=== PATIENT | male | born 1965 | race Caucasian/White ===

== ENCOUNTER 2023-05-16 15:30 | Inpatient (IN) ==
[2023-05-16] MEDS ORDERED: ACETAMINOPHEN 500 MG TAB PO STA (16:26)
[2023-05-16] MEDS ORDERED: SODIUM CHLORIDE 0.9% 1000ML 2,000 ML IV SCH (16:30)
--- NOTE | 2023-05-16 16:35 | Emergency Department Note ---
Impression & Plan Sepsis, UTI (urinary tract infection), Tick-borne disease, Syncope ED Provider Note CHIEF COMPLAINT: Fever, body aches, fatigue HISTORY OF PRESENT ILLNESS: This 58 year old male patient presents to the emergency department via ambulance from Urgent Care after syncopal episode x2. Patient states on Sunday, he drove for 6 hours in the car. He states he was feeling fine on Sunday and in fact was cutting up a tree that fell. He spent 2 to 3 hours logging and then was having a campfire where he was drinking some bourbon in the evening. States he did not finish his bourbon because he started feeling very lousy. He was experiencing some generalized body aches, fatigue, and felt very tired. He went to bed and slept great at night. He states at that time, he developed a fever. Since then, he has had fevers every day. On Sunday, he had a Tmax of 104.5 F. He has been taking Tylenol about every 6-8 hours since then which does help with the fever. He has not been taking any o ther medication. He denies any cough, congestion, runny nose, sore throat. No chest pain or shortness of breath. No abdominal pain, nausea, vomiting, diarrhea, constipation. The patient has been eating and drinking okay. He states his urine is darker than normal. He denies any flank pain. He states he did have some similar symptoms associated with a urinary tract infection he had when he was out of town several years ago. He does have a history of syncopal episodes associated with medical care. He has had extensive work-ups with his primary care provider as well as cardiology. 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 Patient does report a history of hypertension. He is currently on 20 mg of lisinopril. He states that the dose was increased from 10 mg to 20 mg about 6 months ago. He normally runs on the higher side in the 130s to 140s over 80s. He states his blood pressure of 120s over 70s is somewhat low for him. Patient states he had a decreased appetite earlier today and has only had crackers and drink some water throughout the day. Patient denies any headaches or neck pain or stiffness. He denies any trauma or injury. Of note, the patient states about 6 weeks ago, he was cleaning his pond and had some sort of a bite on the posterior aspect of his right knee. He was seen by acute care at that time and started on a 10-day course of doxycycline. He took the full course of the antibiotic and states the infection cleared up very quickly. REVIEW OF SYSTEMS: A 10 system review of systems was performed with positives and pertinent negatives listed in the history of present illness. All other systems were reviewed and are negative. ALLERGIES: None PHYSICAL EXAM: VITALS: Vitals are noted on the nurse's note and reviewed by myself. Vital signs stable. GENERAL: This is a 58-year-old male, in no acute distress, nondiaphoretic, well- developed well-nourished. SKIN: The skin was without rashes, erythema, edema, or bruising. There is no tenting of the skin. Capillary refill less than 2 seconds. HEAD: Normocephalic atraumatic. EARS: External auditory canals clear, tympanic membranes pearly mcneill without erythema or effusion bilaterally. No hemotympanum. Negative carbajal sign EYES: Pupils equal round and reactive to light and accommodation. Conjunctivae without injection, sclerae without icterus. Extraocular movements intact. NOSE: Patent, turbinates without inflammation or discharge. No sinus tenderness. MOUTH: Mucous membranes moist. Tonsils are not enlarged. Pharynx without erythema or exudate. Uvula midline. Airway patent. Tongue does not deviate. NECK: Supple without nuchal rigidity. No lymphadenopathy. No thyromegaly. Cervical spine is nontender. No JVD. HEART: Regular rate and rhythm without murmurs gallops or rubs. LUNGS: Clear to auscultation bilaterally without wheezes, rales or rhonchi. No retractions or accessory muscle use. ABDOMEN: Positive bowel sounds x 4. Soft, nontender, without masses or org anomegaly. Cote sign negative. No guarding or rebound tenderness. No CVA tenderness bilaterally. MUSCULOSKELETAL: No muscle atrophy, erythema, or edema noted. Full range of motion without joint tenderness in all extremities. No tenderness to palpation. Normal gait. Strength 5/5 throughout. NEURO: Patient was alert and oriented to person place and time. Normal sensation to light and sharp touch. Deep tendon reflexes 2+ throughout. No focal neurological deficits. 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 The monitor showed a normal sinus rhythm at a ventricular rate of 91 bpm, per my interpretation. EMERGENCY DEPARTMENT COURSE: Seen and evaluated as above. He presents via ambulance for evaluation after 2 syncopal episodes. The patient has been experiencing fever, body aches, and fatigue for several days. Given the symptoms and examination, I did elect to perform the above work-up. IV access was obtained, labs drawn. Patient was medicated with acetaminophen and IV fluids. Chest x-ray was performed and reviewed by myself and radiologist as noted. Labs were reviewed. There is a mild leukopenia with a white blood cell count of 3.18. Thrombocytopenia with platelet count of 80,000. No anemia. INR 1.1. D- dimer elevated at 4340. Renal, hepatic function and electrolytes without significant abnormality, however total bilirubin is mildly elevated at 1.5. C- reactive protein is elevated at 15.23. Lactic acid 2.1. Procalcitonin 0.47. Lipase 19. TSH 0.587. Urinalysis concerning for a cloudy appearance, positive nitrites, 2+ ketones, trace blood, 1+ bacteria. Anaplasma and Babesia smear are negative. Monoscreen negative. Lyme disease testing is negative at this time. Respiratory bio fire testing is negative for acute abnormality. Given the positive D-dimer, I did recommend CT angiogram to further evaluate his symptoms and to rule out PE. CT imaging was negative for evidence of infection or PE. The patient was medicated with IV Rocephin while in the emergency department. He was medicated with 2 L of IV fluids for aggressive rehydration. I am concerned that the patient is presenting with early sepsis. He is not hypotensive or tachycardic, but he was febrile upon arrival. The patient is experiencing systemic symptoms. He does have an elevated lactic acid as well as high fevers. Urinalysis is concerning for urinary tract infection. I am also concerned for tickborne illness given the recent insect bite several weeks ago as well as leukopenia, thrombocytopenia, and elevated bilirubin. I do recommend inpatient care for further evaluation. The patient was agreeable. He will be evaluated by Dr. Bain, [facility] physician. Please see his dictation regarding ongoing management, care, and final disposition of this patient Differential diagnosis includes Vasovagal event, dehydration, infection, hyp oglycemia, electrolyte abnormalities, cardiac sources, intracerebral event, pulmonary embolism, tick-borne illness, seizure, toxicologic, neurologic, as well as other pathologies. I attest that I have personally reviewed the patient's current medication list. Patient was found to have normal blood pressure on screening and does not require follow-up. The chart was completed utilizing [employer] Speech voice recognition software. Grammatical errors, random word insertions, pronoun errors, and incomplete sentences are an occasional consequence of this system due to software limitations, ambient noise, and hardware issues. Any formal questions or concerns about the content, text, or information contained within the body of this dictation should be directly addressed to the provider for clarification. 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 Home Meds Home Medications Medication Instructions Recorded Confirmed celecoxib 200 mg capsule 200 mg PO QPM PRN Pain 05/16/23 05/16/23 lisinopril 20 1 tab PO DAILY 05/16/23 05/16/23 mg-hydrochlorothiazide 12.5 mg tablet lorazepam 1 mg tablet 1 mg PO DAILY PRN ANXIETY--BLOOD 05/16/23 05/16/23 DRAWS multivitamin 1 tab PO DAILY 05/16/23 05/16/23 Results & Data (ED) Vital Signs Vital Signs - 24 hr 05/16/23 15:43 05/16/23 16:24 05/16/23 16:49 Temperature 38 C H Temperature Source Oral Pulse Rate - Lying Pulse Rate - Sitting Pulse Rate - Standing Pulse Rate 85 88 91 H Pulse Rate [Right Finger] Pulse Rhythm [Right Finger] Pulse Strength [Right Finger] Respiratory Rate 22 13 Respiratory Effort / Characteristics Non-Labored Respiratory Depth Normal Blood Pressure - Lying Blood Pressure - Sitting Blood Pressure- Standing Blood Pressure 122/77 Blood Pressure [Right Arm] Blood Pressure Mean 92 Blood Pressure Mean [Right Arm] Pulse Oximetry 97 96 Oxygen Delivery Method Room Air Room Air Oxygen Flow Rate Sepsis Recent Fever Within 48 Hours Yes Sepsis New/Unexplained Change in Mental Status No Sepsis Action Taken by Nursing No Action Required 05/16/23 17:50 05/16/23 17:50 05/16/23 17:52 Temperature 37.8 C H Temperature Source Oral Pulse Rate - Lying 78 Pulse Rate - Sitting 90 Pulse Rate - Standing 86 Pulse Rate Pulse Rate [Right Finger] Pulse Rhythm [Right Finger] Pulse Strength [Right Finger] Respiratory Rate Respiratory Effort / Characteristics Respiratory Depth Blood Pressure - Lying 127/75 Blood Pressure - Sitting 123/73 Blood Pressure- Standing 121/76 Blood Pressure Blood Pressure [Right Arm] Blood Pressure Mean Blood Pressure Mean [Right Arm] Pulse Oximetry 97 Oxygen Delivery Method Room Air Oxygen Flow Rate 0 Sepsis Recent Fever Within 48 Hours Sepsis New/Unexplained Change in Mental Status Sepsis Action Taken by Nursing 05/16/23 17:53 05/16/23 19:11 Temperature 37.8 C H Temperature Source Oral Pulse Rate - Lying Pulse Rate - Sitting Pulse Rate - Standing Pulse Rate Pulse Rate [Right Finger] 77 76 Pulse Rhythm [Right Finger] Regular Pulse Strength [Right Finger] Normal Respiratory Rate 14 17 Respiratory Effort / Characteristics Non-Labored Respiratory Depth Normal Blood Pressure - Lying Blood Pressure - Sitting Blood Pressure- Standing Blood Pressure Blood Pressure [Right Arm] 121/76 116/76 Blood Pressure Mean Blood Pressure Mean [Right Arm] 91 89 Pulse Oximetry 100 96 Oxygen Delivery Method Oxygen Flow Rate Sepsis Recent Fever Within 48 Hours Sepsis New/Unexplained Change in Mental Status Sepsis Action Taken by Nursing Laboratory Data 05/16/23 15:50 05/16/23 15:50 Lab Results 05/16/23 05/16/23 05/16/23 Range/Units 15:50 15:50 15:50 WBC 3.18 L (4.8-10.8) K/ul RBC 4.98 (4.70-6.10) M/uL Hgb 15.4 (14.0-18.0) g/dl Hct 42.4 (42.0-52.0) % MCV 85.1 (80.0-100.0) fL MCH 30.9 (25.0-34.0) pg MCHC 36.3 H (32.0-36.0) g/dL RDW Std Deviation 38.7 (36.4-46.3) fL RDW Coeff of Marika 12.6 (11.5-14.5) % Plt Count 80 L (130-400) K/uL MPV 10.1 (9.4-12.4) fL Immature Gran % (Auto) 0.3 % Neut % (Auto) 81.2 % Lymph % (Auto) 9.7 % [place] % (Auto) 7.9 % Eos % (Auto) 0.0 % Baso % (Auto) 0.9 % Neut # (Auto) 2.58 (1.40-6.50) K/uL Lymph # (Auto) 0.31 L (1.2-3.4) K/uL [place] # (Auto) 0.25 (0.11-0.59) K/uL Eos # (Auto) 0.00 (0-0.50) K/uL Baso # (Auto) 0.03 (0-0.2) K/uL Immature Gran # (Auto) 0.01 (0.01-0.20) K/uL Platelet Estimate Decreased L (Normal) PT 11.7 (9.0-12.0) Seconds INR 1.1 (0.9-1.1) APTT 28.4 (21.0-31.0) Seconds PTT Ratio 1.0 D-Dimer 4340 H* (0-500) ug/L FEU Sodium (136-145) mmol/L Potassium (3.5-5.1) mmol/L Chloride (98-107) mmol/L Carbon Dioxide (21-32) mmol/L Anion Gap (3-11) BUN (6-23) mg/dl Creatinine (0.6-1.4) mg/dl Est Cr Clr Drug Dosing ml/min Est GFR ( Amer) ml/min Est GFR (Non-Af Amer) ml/min BUN/Creatinine Ratio (10-20) Glucose (70-99(Fasting)) mg/dl Lactate (0.4-2.0) mmol/L Calcium (8.6-10.3) mg/dl Magnesium (1.7-2.4) mg/dl Total Bilirubin (0.2-1.0) mg/dl AST (13-39) U/L ALT (7-52) U/L Alkaline Phosphatase (34-104) U/L Total Creatine Kinase (30-223) U/L Troponin I High Sens (0-20) pg/ml C-Reactive Protein (0-0.5) mg/dl Total Protein (6.0-8.3) gm/dl Albumin (3.4-5.0) gm/dl Globulin (2.5-4.0) gm/dl Albumin/Globulin Ratio (0.9-2) Lipase (11-82) U/L Procalcitonin 0.47 (0-0.5) ng/ml TSH (0.300-4.500) uIu/ml Urine Color Urine Appearance (Clear) Urine pH (4.5-7.5) Ur Specific [place] (1.000-1.030) Urine Protein (Negative) Urine Glucose (UA) (Negative) Urine Ketones (Negative) Urine Blood (Negative) Urine Nitrite (Negative) Urine Bilirubin (Negative) Urine Urobilinogen (Negative) Ur Leukocyte Esterase (Negative) Urine WBC (Auto) (0-5) /hpf Urine RBC (Auto) (0-4) /hpf U Hyaline Cast (Auto) (0-5) /lpf U Epithel Cells (Auto) (0-5) /lpf Urine Bacteria (Auto) (Negative) Adenovirus (PCR) (NotDetected) Anaplasma Smear See Comment Babesia Smear See Comment B. pertussis DNA (PCR) (NotDetected) B.parapertussis DNA PCR (NotDetected) Lyme Disease IgG Ab Negative (Negative) Lyme Disease IgM Ab Negative (Negative) C. pneumoniae DNA (PCR) (NotDetected) Coronavirus OC43 (PCR) (NotDetected) Coronavirus HKU1 (PCR) (NotDetected) Coronavirus 229E (PCR) (NotDetected) SARS-CoV-2 (PCR) (NotDetected) Coronavirus NL63 (PCR) (NotDetected) Monoscreen (Negative) Human Metapneumovir PCR (NotDetected) Influenza Type A (PCR) (NotDetected) Influenza Type B (PCR) (NotDetected) M. pneumoniae (PCR) (NotDetected) Parainfluenza 1 (PCR) (NotDetected) Parainfluenza 2 (PCR) (NotDetected) Parainfluenza 3 (PCR) (NotDetected) Parainfluenza 4 (PCR) (NotDetected) RSV (PCR) (NotDetected) Entero/Rhino (PCR) (NotDetected) 05/16/23 05/16/23 05/16/23 Range/Units 15:50 15:50 16:47 WBC (4.8-10.8) K/ul RBC (4.70-6.10) M/uL Hgb (14.0-18.0) g/dl Hct (42.0-52.0) % MCV (80.0-100.0) fL MCH (25.0-34.0) pg MCHC (32.0-36.0) g/dL RDW Std Deviation (36.4-46.3) fL RDW Coeff of Marika (11.5-14.5) % Plt Count (130-400) K/uL MPV (9.4-12.4) fL Immature Gran % (Auto) % Neut % (Auto) % Lymph % (Auto) % [place] % (Auto) % Eos % (Auto) % Baso % (Auto) % Neut # (Auto) (1.40-6.50) K/uL Lymph # (Auto) (1.2-3.4) K/uL [place] # (Auto) (0.11-0.59) K/uL Eos # (Auto) (0-0.50) K/uL Baso # (Auto) (0-0.2) K/uL Immature Gran # (Auto) (0.01-0.20) K/uL Platelet Estimate (Normal) PT (9.0-12.0) Seconds INR (0.9-1.1) APTT (21.0-31.0) Seconds PTT Ratio D-Dimer (0-500) ug/L FEU Sodium 131 L (136-145) mmol/L Potassium 3.6 (3.5-5.1) mmol/L Chloride 97 L (98-107) mmol/L Carbon Dioxide 23 (21-32) mmol/L Anion Gap 11 (3-11) BUN 17 (6-23) mg/dl Creatinine 1.09 (0.6-1.4) mg/dl Est Cr Clr Drug Dosing 91.3 ml/min Est GFR ( Amer) 86.9 ml/min Est GFR (Non-Af Amer) 74.9 ml/min BUN/Creatinine Ratio 15.6 (10-20) Glucose 166 H (70-99(Fasting)) mg/dl Lactate (0.4-2.0) mmol/L Calcium 9.0 (8.6-10.3) mg/dl Magnesium 1.7 (1.7-2.4) mg/dl Total Bilirubin 1.5 H (0.2-1.0) mg/dl AST 36 (13-39) U/L ALT 35 (7-52) U/L Alkaline Phosphatase 58 (34-104) U/L Total Creatine Kinase 69 (30-223) U/L Troponin I High Sens 7.1 (0-20) pg/ml C-Reactive Protein 15.23 H (0-0.5) mg/dl Total Protein 6.9 (6.0-8.3) gm/dl Albumin 4.0 (3.4-5.0) gm/dl Globulin 2.9 (2.5-4.0) gm/dl Albumin/Globulin Ratio 1.4 (0.9-2) Lipase 19 (11-82) U/L Procalcitonin (0-0.5) ng/ml TSH 0.587 (0.300-4.500) uIu/ml Urine Color Dark Yellow Urine Appearance Cloudy A (Clear) Urine pH 6.5 (4.5-7.5) Ur Specific [place] 1.023 (1.000-1.030) Urine Protein 2+ H (Negative) Urine Glucose (UA) Negative (Negative) Urine Ketones 2+ H (Negative) Urine Blood Trace H (Negative) Urine Nitrite Positive A (Negative) Urine Bilirubin Negative (Negative) Urine Urobilinogen Negative (Negative) Ur Leukocyte Esterase Trace H (Negative) Urine WBC (Auto) 1-5 (0-5) /hpf Urine RBC (Auto) 5-10 H (0-4) /hpf U Hyaline Cast (Auto) 1-5 (0-5) /lpf U Epithel Cells (Auto) 10-20 H (0-5) /lpf Urine Bacteria (Auto) 1+ H (Negative) Adenovirus (PCR) (NotDetected) Anaplasma Smear Babesia Smear B. pertussis DNA (PCR) (NotDetected) B.parapertussis DNA PCR (NotDetected) Lyme Disease IgG Ab (Negative) Lyme Disease IgM Ab (Negative) C. pneumoniae DNA (PCR) (NotDetected) Coronavirus OC43 (PCR) (NotDetected) Coronavirus HKU1 (PCR) (NotDetected) Coronavirus 229E (PCR) (NotDetected) SARS-CoV-2 (PCR) (NotDetected) Coronavirus NL63 (PCR) (NotDetected) Monoscreen (Negative) Human Metapneumovir PCR (NotDetected) Influenza Type A (PCR) (NotDetected) Influenza Type B (PCR) (NotDetected) M. pneumoniae (PCR) (NotDetected) Parainfluenza 1 (PCR) (NotDetected) Parainfluenza 2 (PCR) (NotDetected) Parainfluenza 3 (PCR) (NotDetected) Parainfluenza 4 (PCR) (NotDetected) RSV (PCR) (NotDetected) Entero/Rhino (PCR) (NotDetected) 05/16/23 05/16/23 05/16/23 Range/Units 17:10 17:10 18:07 WBC (4.8-10.8) K/ul RBC (4.70-6.10) M/uL Hgb (14.0-18.0) g/dl Hct (42.0-52.0) % MCV (80.0-100.0) fL MCH (25.0-34.0) pg MCHC (32.0-36.0) g/dL RDW Std Deviation (36.4-46.3) fL RDW Coeff of Marika (11.5-14.5) % Plt Count (130-400) K/uL MPV (9.4-12.4) fL Immature Gran % (Auto) % Neut % (Auto) % Lymph % (Auto) % [place] % (Auto) % Eos % (Auto) % Baso % (Auto) % Neut # (Auto) (1.40-6.50) K/uL Lymph # (Auto) (1.2-3.4) K/uL [place] # (Auto) (0.11-0.59) K/uL Eos # (Auto) (0-0.50) K/uL Baso # (Auto) (0-0.2) K/uL Immature Gran # (Auto) (0.01-0.20) K/uL Platelet Estimate (Normal) PT (9.0-12.0) Seconds INR (0.9-1.1) APTT (21.0-31.0) Seconds PTT Ratio D-Dimer (0-500) ug/L FEU Sodium (136-145) mmol/L Potassium (3.5-5.1) mmol/L Chloride (98-107) mmol/L Carbon Dioxide (21-32) mmol/L Anion Gap (3-11) BUN (6-23) mg/dl Creatinine (0.6-1.4) mg/dl Est Cr Clr Drug Dosing ml/min Est GFR ( Amer) ml/min Est GFR (Non-Af Amer) ml/min BUN/Creatinine Ratio (10-20) Glucose (70-99(Fasting)) mg/dl Lactate 2.1 H* (0.4-2.0) mmol/L Calcium (8.6-10.3) mg/dl Magnesium (1.7-2.4) mg/dl Total Bilirubin (0.2-1.0) mg/dl AST (13-39) U/L ALT (7-52) U/L Alkaline Phosphatase (34-104) U/L Total Creatine Kinase (30-223) U/L Troponin I High Sens (0-20) pg/ml C-Reactive Protein (0-0.5) mg/dl Total Protein (6.0-8.3) gm/dl Albumin (3.4-5.0) gm/dl Globulin (2.5-4.0) gm/dl Albumin/Globulin Ratio (0.9-2) Lipase (11-82) U/L Procalcitonin (0-0.5) ng/ml TSH (0.300-4.500) uIu/ml Urine Color Urine Appearance (Clear) Urine pH (4.5-7.5) Ur Specific [place] (1.000-1.030) Urine Protein (Negative) Urine Glucose (UA) (Negative) Urine Ketones (Negative) Urine Blood (Negative) Urine Nitrite (Negative) Urine Bilirubin (Negative) Urine Urobilinogen (Negative) Ur Leukocyte Esterase (Negative) Urine WBC (Auto) (0-5) /hpf Urine RBC (Auto) (0-4) /hpf U Hyaline Cast (Auto) (0-5) /lpf U Epithel Cells (Auto) (0-5) /lpf Urine Bacteria (Auto) (Negative) Adenovirus (PCR) Not Detected (NotDetected) Anaplasma Smear Babesia Smear B. pertussis DNA (PCR) Not Detected (NotDetected) B.parapertussis DNA PCR Not Detected (NotDetected) Lyme Disease IgG Ab (Negative) Lyme Disease IgM Ab (Negative) C. pneumoniae DNA (PCR) Not Detected (NotDetected) Coronavirus OC43 (PCR) Not Detected (NotDetected) Coronavirus HKU1 (PCR) Not Detected (NotDetected) Coronavirus 229E (PCR) Not Detected (NotDetected) SARS-CoV-2 (PCR) Not Detected (NotDetected) Coronavirus NL63 (PCR) Not Detected (NotDetected) Monoscreen Negative (Negative) Human Metapneumovir PCR Not Detected (NotDetected) Influenza Type A (PCR) Not Detected (NotDetected) Influenza Type B (PCR) Not Detected (NotDetected) M. pneumoniae (PCR) Not Detected (NotDetected) Parainfluenza 1 (PCR) Not Detected (NotDetected) Parainfluenza 2 (PCR) Not Detected (NotDetected) Parainfluenza 3 (PCR) Not Detected (NotDetected) Parainfluenza 4 (PCR) Not Detected (NotDetected) RSV (PCR) Not Detected (NotDetected) Entero/Rhino (PCR) Not Detected (NotDetected) 05/16/23 Range/Units 19:25 WBC (4.8-10.8) K/ul RBC (4.70-6.10) M/uL Hgb (14.0-18.0) g/dl Hct (42.0-52.0) % MCV (80.0-100.0) fL MCH (25.0-34.0) pg MCHC (32.0-36.0) g/dL RDW Std Deviation (36.4-46.3) fL RDW Coeff of Marika (11.5-14.5) % Plt Count (130-400) K/uL MPV (9.4-12.4) fL Immature Gran % (Auto) % Neut % (Auto) % Lymph % (Auto) % [place] % (Auto) % Eos % (Auto) % Baso % (Auto) % Neut # (Auto) (1.40-6.50) K/uL Lymph # (Auto) (1.2-3.4) K/uL [place] # (Auto) (0.11-0.59) K/uL Eos # (Auto) (0-0.50) K/uL Baso # (Auto) (0-0.2) K/uL Immature Gran # (Auto) (0.01-0.20) K/uL Platelet Estimate (Normal) PT (9.0-12.0) Seconds INR (0.9-1.1) APTT (21.0-31.0) Seconds PTT Ratio D-Dimer (0-500) ug/L FEU Sodium (136-145) mmol/L Potassium (3.5-5.1) mmol/L Chloride (98-107) mmol/L Carbon Dioxide (21-32) mmol/L Anion Gap (3-11) BUN (6-23) mg/dl Creatinine (0.6-1.4) mg/dl Est Cr Clr Drug Dosing ml/min Est GFR ( Amer) ml/min Est GFR (Non-Af Amer) ml/min BUN/Creatinine Ratio (10-20) Glucose (70-99(Fasting)) mg/dl Lactate 1.3 (0.4-2.0) mmol/L Calcium (8.6-10.3) mg/dl Magnesium (1.7-2.4) mg/dl Total Bilirubin (0.2-1.0) mg/dl AST (13-39) U/L ALT (7-52) U/L Alkaline Phosphatase (34-104) U/L Total Creatine Kinase (30-223) U/L Troponin I High Sens (0-20) pg/ml C-Reactive Protein (0-0.5) mg/dl Total Protein (6.0-8.3) gm/dl Albumin (3.4-5.0) gm/dl Globulin (2.5-4.0) gm/dl Albumin/Globulin Ratio (0.9-2) Lipase (11-82) U/L Procalcitonin (0-0.5) ng/ml TSH (0.300-4.500) uIu/ml Urine Color Urine Appearance (Clear) Urine pH (4.5-7.5) Ur Specific [place] (1.000-1.030) Urine Protein (Negative) Urine Glucose (UA) (Negative) Urine Ketones (Negative) Urine Blood (Negative) Urine Nitrite (Negative) Urine Bilirubin (Negative) Urine Urobilinogen (Negative) Ur Leukocyte Esterase (Negative) Urine WBC (Auto) (0-5) /hpf Urine RBC (Auto) (0-4) /hpf U Hyaline Cast (Auto) (0-5) /lpf U Epithel Cells (Auto) (0-5) /lpf Urine Bacteria (Auto) (Negative) Adenovirus (PCR) (NotDetected) Anaplasma Smear Babesia Smear B. pertussis DNA (PCR) (NotDetected) B.parapertussis DNA PCR (NotDetected) Lyme Disease IgG Ab (Negative) Lyme Disease IgM Ab (Negative) C. pneumoniae DNA (PCR) (NotDetected) Coronavirus OC43 (PCR) (NotDetected) Coronavirus HKU1 (PCR) (NotDetected) Coronavirus 229E (PCR) (NotDetected) SARS-CoV-2 (PCR) (NotDetected) Coronavirus NL63 (PCR) (NotDetected) Monoscreen (Negative) Human Metapneumovir PCR (NotDetected) Influenza Type A (PCR) (NotDetected) Influenza Type B (PCR) (NotDetected) M. pneumoniae (PCR) (NotDetected) Parainfluenza 1 (PCR) (NotDetected) Parainfluenza 2 (PCR) (NotDetected) Parainfluenza 3 (PCR) (NotDetected) Parainfluenza 4 (PCR) (NotDetected) RSV (PCR) (NotDetected) Entero/Rhino (PCR) (NotDetected) Administered Medications Sodium Chloride (Nss 1000ml) 1,000 mls @ 125 mls/hr IV .Q8H MONSE Stop: 06/15/23 21:57 Last Admin: 05/16/23 22:20 Dose: 125 mls/hr Documented By: SAVANNAH Doxycycline Hyclate 100 mg/ (Dextrose) 110 mls @ 50 mls/hr IV Q12H MONSE Stop: 05/30/23 21:59 Last Admin: 05/16/23 22:20 Dose: 50 mls/hr Documented By: SAVANNAH Discontinued Medications Acetaminophen (Acetaminophen 500 Mg Tab) 1,000 mg PO NOW STA Stop: 05/16/23 16:27 Last Admin: 05/16/23 16:43 Dose: 1,000 mg Documented By: BAR Sodium Chloride (Nss 1000ml) 2,000 mls @ 999 mls/hr IV .Q2H1M MONSE Stop: 05/16/23 18:30 Last Infusion: 05/16/23 18:54 Dose: 0 mls/hr Documented By: Admin: 05/16/23 16:47 Dose: 999 mls/hr Documented By: BAR Ceftriaxone Sodium (Rocephin) 2,000 mg in 70 mls @ 140 mls/hr IV NOW STA Stop: 05/16/23 18:20 Last Infusion: 05/16/23 18:31 Dose: 0 mls/hr Documented By: Admin: 05/16/23 17:56 Dose: 140 mls/hr Documented By: BAR Ioversol (Ioversol 350 Mg 125ml Prefilled Syringe) 117 ml IV ONCE ONE Stop: 05/16/23 18:23 Last Admin: 05/16/23 18:22 Dose: 117 ml Documented By: PATRICIA Imaging Data Radiologist's Impression: Chest X-Ray 05/16/23 16:26 XR chest 1V portable HISTORY: 58 years-old Male syncope COMPARISON: None TECHNIQUE: AP view of the chest FINDINGS: Cardiomediastinal and hilar silhouettes are within normal limits. No pneumothorax, pleural effusion, airspace consolidation or pulmonary edema. Bones appear grossly intact. Spondylotic spurring of the spine. IMPRESSION: No acute process. ACT 112: Negative or not required by law. The above report was generated using voice recognition software. It may contain grammatical, syntax or spelling errors. Electronically signed by: Burke Colon M.D. 05/16/2023 4:35 PM Chest CTA 05/16/23 18:06 CT ANGIOGRAPHY OF THE CHEST, PULMONARY EMBOLUS PROTOCOL CLINICAL HISTORY: Fever, syncope, positive Dimer COMPARISON STUDY: Chest radiograph performed earlier today. TECHNIQUE: Following IV administration of 117 mL of Optiray, helical axial images of the chest were obtained utilizing the pulmonary embolus protocol. Maximal intensity projections and sagittal and coronal reformats were viewed on an independent 3D workstation. IV contrast was administered without complication. Automated exposure control was utilized for the study. A dose lowering technique was utilized adhering to the principles of ALARA. CT DOSE: 941.69 mGy.cm FINDINGS: No pulmonary emboli are identified. There is no thoracic aortic dissection. Size of the heart is normal. There is no pericardial effusion. No consolidation is identified to suggest pneumonia. A few small calcified granulomas within the lungs are present. Central airways are patent. No acute fractures are identified within visualized portions of the bony thorax. There is mild splenomegaly, partially imaged on this exam. IMPRESSION: 1. No pulmonary emboli identified. 2. No consolidation to suggest pneumonia. 3. Mild splenomegaly. ACT 112: Negative or not required by law. Electronically signed by: Bashir Golden M.D. 05/16/2023 6:32 PM Discharge Plan Visit Data Chief Complaint: Syncope Stated Complaint: SYNCOPE ED Provider: Lamonte Jensen ED Midlevel Provider: Jocelyn Blanc Discharge Problem: Sepsis, UTI (urinary tract infection), Tick-borne disease, Syncope Patient Disposition: Admitted As Inpatient Discharge Instructions Interventions: ED Discharge Assessment Last Done: 05/16/23 21:32
--- NOTE | 2023-05-16 16:37 | XRay Report ---
XR chest 1V portable HISTORY: 58 years-old Male syncope COMPARISON: None TECHNIQUE: AP view of the chest FINDINGS: Cardiomediastinal and hilar silhouettes are within normal limits. No pneumothorax, pleural effusion, airspace consolidation or pulmonary edema. Bones appear grossly intact. Spondylotic spurring of the s pine. IMPRESSION: No acute process. ACT 112: Negative or not required by law. The above report was generated using voice recognition software. It may contain grammatical, syntax o r spelling errors. Electronically signed by: Burke Colon M.D. 05/16/2023 4:35 PM
[2023-05-16 17:16] LABS: Appearance Urine Cloudy (Clear); Bilirubin Urine Negative (Negative); Blood Urine Trace (Negative); Color Urine Dark Yellow; Glucose Urine UA Negative (Negative); Ketones Urine 2+ (Negative); Leukocyte Esterase Urine Trace (Negative); Nitrite Urine Positive (Negative); Protein Urine 2+ (Negative); Specific Gravity Urine 1.023 (1.000-1.030); Urobilinogen Urine Negative (Negative); pH Urine 6.5 (4.5-7.5)
[2023-05-16 17:22] LABS: Albumin Globulin Ratio 1.4 (0.9-2); BUN Creatinine Ratio 15.6 (10-20); Bilirubin,Total 1.5 mg/dl (0.2-1.0); C Reactive Protein 15.23 mg/dl (0-0.5); Creatinine Clr Calc Pharmacy 91.3 ml/min; Est GFR (African American) 86.9 ml/min; Est GFR (Non-African American) 74.9 ml/min; Globulin 2.9 gm/dl (2.5-4.0); Magnesium 1.7 mg/dl (1.7-2.4); Potassium 3.6 mmol/L (3.5-5.1); Total Protein 6.9 gm/dl (6.0-8.3)
[2023-05-16 17:27] LABS: Troponin I High Sensitivity 7.1 pg/ml (0-20)
[2023-05-16 17:28] LABS: Hematocrit (blood only) 42.4 % (42.0-52.0); Hemoglobin 15.4 g/dl (14.0-18.0); Mean Corpuscular Hemoglobin 30.9 pg (25.0-34.0); Mean Corpuscular Hgb Conc 36.3 g/dL (32.0-36.0); Mean Corpuscular Volume 85.1 fL (80.0-100.0); Mean Platelet Volume 10.1 fL (9.4-12.4); Platelet Count 80 K/uL (130-400); RDW Coefficient of Variation 12.6 % (11.5-14.5); RDW Standard Deviation 38.7 fL (36.4-46.3); Red Blood Count 4.98 M/uL (4.70-6.10); White Blood Count 3.18 K/ul (4.8-10.8)
[2023-05-16 17:30] LABS: Basophils # (auto) 0.03 K/uL (0-0.2); Basophils % (auto) 0.9 %; Immature Granulocytes # (auto) 0.01 K/uL (0.01-0.20); Immature Granulocytes % (auto) 0.3 %; Lymphocytes # (auto) 0.31 K/uL (1.2-3.4); Lymphocytes % (auto) 9.7 %; Monocytes # (auto) 0.25 K/uL (0.11-0.59); Monocytes % (auto) 7.9 %; Neutrophils # (auto) 2.58 K/uL (1.40-6.50); Neutrophils % (auto) 81.2 %; Platelet Estimate Decreased (Normal)
[2023-05-16 17:40] LABS: Procalcitonin 0.47 ng/ml (0-0.5)
[2023-05-16 17:46] LABS: Lyme Ab IgG w/WB Rflx Negative (Negative); Lyme Ab IgM w/WB Rflx Negative (Negative)
[2023-05-16] MEDS ORDERED: cefTRIAXone SODIUM 2,000 MG/70 ML BAG IV STA (17:51)
[2023-05-16 17:57] LABS: Bacteria Urine Automated 1+ (Negative)
[2023-05-16 18:03] LABS: INR 1.1 (0.9-1.1); Partial Thromboplastin Time 28.4 Seconds (21.0-31.0); Prothrombin Time 11.7 Seconds (9.0-12.0)
[2023-05-16 18:06] LABS: D Dimer 4340 ug/L FEU (0-500)
[2023-05-16] MEDS ORDERED: IOVERSOL 350 MG 125mL Prefilled Syringe IV ONE (18:22)
--- NOTE | 2023-05-16 18:35 | CT Scan Report ---
CT ANGIOGRAPHY OF THE CHEST, PULMONARY EMBOLUS PROTOCOL CLINICAL HISTORY: Fever, syncope, positive Dimer COMPARISON STUDY: Chest radiograph performed earlier today. TECHNIQUE: Following IV administration of 117 mL of Optiray, helical axial images of the chest were o btained utilizing the pulmonary embolus protocol. Maximal intensity projections and sagittal and cor onal reformats were viewed on an independent 3D workstation. IV contrast was administered without co mplication. Automated exposure control was utilized for the study. A dose lowering technique was ut ilized adhering to the principles of ALARA. CT DOSE: 941.69 mGy.cm FINDINGS: No pulmonary emboli are identified. There is no thoracic aortic dissection. Size of the he art is normal. There is no pericardial effusion. No consolidation is identified to suggest pneumonia. A few small calcified granulomas within the lungs are present. Central airways are patent. No acute fractures are identified within visualized portions of the bony thorax. There is mild splenomegaly, p artially imaged on this exam. IMPRESSION: 1. No pulmonary emboli identified. 2. No consolidation to suggest pneumonia. 3. Mild splenomegaly. ACT 112: Negative or not required by law. Electronically signed by: Bashir Golden M.D. 05/16/2023 6:32 PM
[2023-05-16 18:40] LABS: Adenovirus PCR Not Detected (NotDetected); Bordetella parapertussis PCR Not Detected (NotDetected); Bordetella pertussis PCR Not Detected (NotDetected); Chlamydia pneumoniae PCR Not Detected (NotDetected); Coronavirus 229E PCR Not Detected (NotDetected); Coronavirus CoV-2 (COVID19)PCR Not Detected (NotDetected); Coronavirus HKU1 PCR Not Detected (NotDetected); Coronavirus NL63 PCR Not Detected (NotDetected); Coronavirus OC43PCR Not Detected (NotDetected); Human Metapneumovirus PCR Not Detected (NotDetected); Influenza A PCR Not Detected (NotDetected); Influenza B PCR Not Detected (NotDetected); Mycoplasma pneumoniae PCR Not Detected (NotDetected); Parainfluenza Virus 1 PCR Not Detected (NotDetected); Parainfluenza Virus 2 PCR Not Detected (NotDetected); Parainfluenza Virus 3 PCR Not Detected (NotDetected); Parainfluenza Virus 4 PCR Not Detected (NotDetected); Respiratory Syncytial VirusPCR Not Detected (NotDetected); Rhinovirus/Enterovirus PCR Not Detected (NotDetected)
[2023-05-16] MEDS ORDERED: NITROGLYCERIN SL 0.4 MG/TAB TAB SL PRN (21:58)
[2023-05-16] MEDS ORDERED: ACETAMINOPHEN 325 MG TAB PO PRN (21:58)
[2023-05-16] MEDS ORDERED: LORazepam 1 MG TAB PO PRN (21:58)
[2023-05-16] MEDS: DOXYCYCLINE HYCLATE 100 MG in DEXTROSE 5% 100 ML IV SCH (22:20)
[2023-05-16] MEDS: SODIUM CHLORIDE 0.9% 1000ML 1,000 ML IV SCH (22:20)
--- NOTE | 2023-05-16 22:36 | History & Physical Report ---
Date of Service May 16, 2023 Assessment & Plan (1) Sepsis: Plan: 58-year-old male with history of hypertension and history of syncopal episodes presents with high fevers and syncopal episodes and found to have sepsis most likely secondary to UTI and tickborne illness. Sepsis High fever, leukopenia elevated lactic acid 2.1 on presentation Urinalysis positive Patient lives in [facility] and recently had a tick bite 3 weeks ago though he thinks it was only less than 2 hours on his body when he took it off. Currently hemodynamically stable We will continue the Rocephin and doxycycline and IV fluids We will monitor the hemodynamics We will follow the cultures Syncope He passed a couple of times in the urgent care and was told just to go to hospital Patient says he has history of syncopes in the past several times since his 20s mostly associated with any medical condition Will monitor on telemetry floor Orthostatics Follow serial cardiac enzymes and echo Consult cardiology in a.m. UTI Antibiotics as able Possible tickborne illness Patient is [facility] area and had tick bite 3 weeks ago Possible anaplasmosis as patient has leukopenia and thrombocytopenia and elevated total bilirubin We will follow the tickborne illness studies Currently on Rocephin and Doxy We will monitor the response Hyponatremia Sodium of 131 Getting fluids We will follow labs in a.m. Elevated D-dimer CTA chest no PE Most likely from sepsis Hypertension On lisinopril hydrochlorothiazide at home We will hold home blood pressure meds for now and monitor DVT prophylaxis SCDs as patient has thrombocytopenia Disposition telemetry floor Full code (2) Syncope: (3) UTI (urinary tract infection): (4) Tick-borne disease: History of Present Illness Chief Complaint: Fevers and syncopal episode Primary Care Provider: Joseph Mckeon 58-year-old male with past medical history significant for hypertension history of syncopal episodes in the past presents with high fevers and syncopal episode in the urgent care. Patient [place] [address] Last Sunday he got some logs later in the night he felt weak started developing fevers. The fevers did not subside and Sunday they were 104 degrees. He took some Tylenol. As they are not getting better and feeling weak and poor appetite he went to urgent care today. In the urgent care he was told that he has to go to ER and that he has A-fib when he suddenly had somewhat panic attack because he does not like hospitals and he passed out for less than a minute as per the patient. With EMS came he passed out 1 more time as per patient. He says he drank a lot of water in anticipation of urine test before going to the urgent care. And says he micturated once while he passed out. Patient states syncopal episodes is not new to him. He is having them since his 20s. And all of them happened when he is in the medical situation. He does not like needles and hospitals. He stated he had a work-up with Holter sleep study with the cardiology in the past. He thinks he he has vasovagal syncope. 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 Patient states when he is not raining he is mostly in the [place]. When he is in the singh he wears clothes treated with permethrin. But 3 weeks ago he saw a tick on the right side of his trunk and took it out and he thinks its not more than couple of hours there. 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 He was treated with doxycycline for 10 days and that cleared infection very fast. In the ER after fluids and antibiotics if a lot better. During the syncopal episode he sweat a lot and was feeling dizzy. Even in the ER while his blood work was done he felt panicky attack and sweat a lot. He says he walked to this CAT scan and he did not feel dizziness. Currently denies any headache or neck pain or chest pain or abdominal pain or back pain. He had back pain earlier but that resolved with the Tylenol. Denies any cough. No earache or runny nose or sore throat. Appetite is down. Today had 1 episode of diarrhea. Normal bladder movements. Urine looked dark. Past medical history as mentioned above Past surgical history none as per patient Family history both mother and dad has diabetes, mother had diabetic retinopathy, maternal grandfather had cancer. Social history never smoked Alcohol occasional. Allergies Allergy/AdvReac Type Severity Reaction Status Date / Time MOSQUITO BITES Allergy Intermediate EXTREME Uncoded 05/16/23 18:46 SWELLING AT SITES, ENDED WITH CELLULITIS. Home Medications Medication Instructions Recorded Confirmed Type celecoxib 200 mg capsule 200 mg PO QPM PRN Pain 05/16/23 05/16/23 History lisinopril 20 mg tablet 20 mg PO DAILY 05/16/23 05/16/23 History lorazepam 1 mg tablet 1 mg PO DAILY PRN ANXIETY--BLOOD 05/16/23 05/16/23 History DRAWS multivitamin 1 tab PO DAILY 05/16/23 05/16/23 History Past Med/Surg History Medical History No pertinent past medical history Social History Smoking Status: Never smoker Hx Alcohol Use: Yes Hx Substance Use: No Preferred Language: Romanian Communication Ability: Effective Bath Solution Maker Required: No Beliefs That Will Affect Care: None Current Living Situation: Spouse Other Information That Helps Us Care for You: No Feels Safe at Home: Yes Safety Concerns: Feels Safe At This Time Assistive Devices: None Review of Systems Review of Systems: All systems reviewed & are unremarkable except as noted in Subjective Physical Exam Physical Exam: General- Not in distress Head- atraumatic Eyes- PERRL ENT- oropharynx clear Neck- supple, no JVD, Lungs- clear to auscultation and percussion Heart- regular rate and rhythm; no murmur, no gallop, Abdomen- normal bowel sounds, soft, nontender, nodistension Extremities- no pretibial edema, no erythema seen Neuro- alert, oriented x 3; PERRL, EOMI; no facial palsy; no dysarthria; non foacl. Skin- warm & dry Results & Data Results & Data Vital Signs (Past 12 Hours) Vital Signs Temp Pulse Pulse Resp BP BP Pulse Ox 05/16/23 19:11 76 17 116/76 96 05/16/23 17:53 37.8 C H 77 14 121/76 100 05/16/23 17:52 37.8 C H 05/16/23 17:50 97 05/16/23 16:49 91 H 13 96 05/16/23 16:24 88 05/16/23 15:43 38 C H 85 22 122/77 97 O2 Del Method O2 Flow Rate 05/16/23 19:11 05/16/23 17:53 05/16/23 17:52 05/16/23 17:50 Room Air 0 05/16/23 16:49 Room Air 05/16/23 16:24 05/16/23 15:43 Room Air Diagnostic Findings Laboratory Results WBC 3.18 K/ul (4.8-10.8) L 05/16/23 15:50 RBC 4.98 M/uL (4.70-6.10) 05/16/23 15:50 Hgb 15.4 g/dl (14.0-18.0) 05/16/23 15:50 Hct 42.4 % (42.0-52.0) 05/16/23 15:50 MCV 85.1 fL (80.0-100.0) 05/16/23 15:50 MCH 30.9 pg (25.0-34.0) 05/16/23 15:50 MCHC 36.3 g/dL (32.0-36.0) H 05/16/23 15:50 RDW Std Deviation 38.7 fL (36.4-46.3) 05/16/23 15:50 RDW Coeff of Marika 12.6 % (11.5-14.5) 05/16/23 15:50 Plt Count 80 K/uL (130-400) L 05/16/23 15:50 MPV 10.1 fL (9.4-12.4) 05/16/23 15:50 Immature Gran % (Auto) 0.3 % 05/16/23 15:50 Neut % (Auto) 81.2 % 05/16/23 15:50 Lymph % (Auto) 9.7 % 05/16/23 15:50 [place] % (Auto) 7.9 % 05/16/23 15:50 Eos % (Auto) 0.0 % 05/16/23 15:50 Baso % (Auto) 0.9 % 05/16/23 15:50 Neut # (Auto) 2.58 K/uL (1.40-6.50) 05/16/23 15:50 Lymph # (Auto) 0.31 K/uL (1.2-3.4) L 05/16/23 15:50 [place] # (Auto) 0.25 K/uL (0.11-0.59) 05/16/23 15:50 Eos # (Auto) 0.00 K/uL (0-0.50) 05/16/23 15:50 Baso # (Auto) 0.03 K/uL (0-0.2) 05/16/23 15:50 Immature Gran # (Auto) 0.01 K/uL (0.01-0.20) 05/16/23 15:50 Platelet Estimate Decreased (Normal) L 05/16/23 15:50 PT 11.7 Seconds (9.0-12.0) 05/16/23 15:50 INR 1.1 (0.9-1.1) 05/16/23 15:50 APTT 28.4 Seconds (21.0-31.0) 05/16/23 15:50 PTT Ratio 1.0 05/16/23 15:50 D-Dimer 4340 ug/L FEU (0-500) H* 05/16/23 15:50 Sodium 131 mmol/L (136-145) L 05/16/23 15:50 Potassium 3.6 mmol/L (3.5-5.1) 05/16/23 15:50 Chloride 97 mmol/L (98-107) L 05/16/23 15:50 Carbon Dioxide 23 mmol/L (21-32) 05/16/23 15:50 Anion Gap 11 (3-11) 05/16/23 15:50 BUN 17 mg/dl (6-23) 05/16/23 15:50 Creatinine 1.09 mg/dl (0.6-1.4) 05/16/23 15:50 Est Cr Clr Drug Dosing 91.3 ml/min 05/16/23 15:50 Est GFR ( Amer) 86.9 ml/min 05/16/23 15:50 Est GFR (Non-Af Amer) 74.9 ml/min 05/16/23 15:50 BUN/Creatinine Ratio 15.6 (10-20) 05/16/23 15:50 Glucose 166 mg/dl (70-99(Fasting)) H 05/16/23 15:50 Lactate 1.3 mmol/L (0.4-2.0) 05/16/23 19:25 Calcium 9.0 mg/dl (8.6-10.3) 05/16/23 15:50 Magnesium 1.7 mg/dl (1.7-2.4) 05/16/23 15:50 Total Bilirubin 1.5 mg/dl (0.2-1.0) H 05/16/23 15:50 AST 36 U/L (13-39) 05/16/23 15:50 ALT 35 U/L (7-52) 05/16/23 15:50 Alkaline Phosphatase 58 U/L (34-104) 05/16/23 15:50 Total Creatine Kinase 69 U/L (30-223) 05/16/23 15:50 Troponin I High Sens 7.1 pg/ml (0-20) 05/16/23 15:50 C-Reactive Protein 15.23 mg/dl (0-0.5) H 05/16/23 15:50 Total Protein 6.9 gm/dl (6.0-8.3) 05/16/23 15:50 Albumin 4.0 gm/dl (3.4-5.0) 05/16/23 15:50 Globulin 2.9 gm/dl (2.5-4.0) 05/16/23 15:50 Albumin/Globulin Ratio 1.4 (0.9-2) 05/16/23 15:50 Lipase 19 U/L (11-82) 05/16/23 15:50 Procalcitonin 0.47 ng/ml (0-0.5) 05/16/23 15:50 TSH 0.587 uIu/ml (0.300-4.500) 05/16/23 15:50 Urine Color Dark Yellow 05/16/23 16:47 Urine Appearance Cloudy (Clear) A 05/16/23 16:47 Urine pH 6.5 (4.5-7.5) 05/16/23 16:47 Ur Specific Marble 1.023 (1.000-1.030) 05/16/23 16:47 Urine Protein 2+ (Negative) H 05/16/23 16:47 Urine Glucose (UA) Negative (Negative) 05/16/23 16:47 Urine Ketones 2+ (Negative) H 05/16/23 16:47 Urine Blood Trace (Negative) H 05/16/23 16:47 Urine Nitrite Positive (Negative) A 05/16/23 16:47 Urine Bilirubin Negative (Negative) 05/16/23 16:47 Urine Urobilinogen Negative (Negative) 05/16/23 16:47 Ur Leukocyte Esterase Trace (Negative) H 05/16/23 16:47 Urine WBC (Auto) 1-5 /hpf (0-5) 05/16/23 16:47 Urine RBC (Auto) 5-10 /hpf (0-4) H 05/16/23 16:47 U Hyaline Cast (Auto) 1-5 /lpf (0-5) 05/16/23 16:47 U Epithel Cells (Auto) 10-20 /lpf (0-5) H 05/16/23 16:47 Urine Bacteria (Auto) 1+ (Negative) H 05/16/23 16:47 Adenovirus (PCR) Not Detected (NotDetected) 05/16/23 17:10 Anaplasma Smear See Comment 05/16/23 15:50 Babesia Smear See Comment 05/16/23 15:50 B. pertussis DNA (PCR) Not Detected (NotDetected) 05/16/23 17:10 B.parapertussis DNA PCR Not Detected (NotDetected) 05/16/23 17:10 Lyme Disease IgG Ab Negative (Negative) 05/16/23 15:50 Lyme Disease IgM Ab Negative (Negative) 05/16/23 15:50 C. pneumoniae DNA (PCR) Not Detected (NotDetected) 05/16/23 17:10 Coronavirus OC43 (PCR) Not Detected (NotDetected) 05/16/23 17:10 Coronavirus HKU1 (PCR) Not Detected (NotDetected) 05/16/23 17:10 Coronavirus 229E (PCR) Not Detected (NotDetected) 05/16/23 17:10 SARS-CoV-2 (PCR) Not Detected (NotDetected) 05/16/23 17:10 Coronavirus NL63 (PCR) Not Detected (NotDetected) 05/16/23 17:10 Monoscreen Negative (Negative) 05/16/23 18:07 Human Metapneumovir PCR Not Detected (NotDetected) 05/16/23 17:10 Influenza Type A (PCR) Not Detected (NotDetected) 05/16/23 17:10 Influenza Type B (PCR) Not Detected (NotDetected) 05/16/23 17:10 M. pneumoniae (PCR) Not Detected (NotDetected) 05/16/23 17:10 Parainfluenza 1 (PCR) Not Detected (NotDetected) 05/16/23 17:10 Parainfluenza 2 (PCR) Not Detected (NotDetected) 05/16/23 17:10 Parainfluenza 3 (PCR) Not Detected (NotDetected) 05/16/23 17:10 Parainfluenza 4 (PCR) Not Detected (NotDetected) 05/16/23 17:10 RSV (PCR) Not Detected (NotDetected) 05/16/23 17:10 Entero/Rhino (PCR) Not Detected (NotDetected) 05/16/23 17:10 Impressions Chest X-Ray 05/16/23 16:26 XR chest 1V portable HISTORY: 58 years-old Male syncope COMPARISON: None TECHNIQUE: AP view of the chest FINDINGS: Cardiomediastinal and hilar silhouettes are within normal limits. No pneumothorax, pleural effusion, airspace consolidation or pulmonary edema. Bones appear grossly intact. Spondylotic spurring of the spine. IMPRESSION: No acute process. ACT 112: Negative or not required by law. The above report was generated using voice recognition software. It may contain grammatical, syntax or spelling errors. Electronically signed by: Burke Colon M.D. 05/16/2023 4:35 PM Chest CTA 05/16/23 18:06 CT ANGIOGRAPHY OF THE CHEST, PULMONARY EMBOLUS PROTOCOL CLINICAL HISTORY: Fever, syncope, positive Dimer COMPARISON STUDY: Chest radiograph performed earlier today. TECHNIQUE: Following IV administration of 117 mL of Optiray, helical axial images of the chest were obtained utilizing the pulmonary embolus protocol. Maximal intensity projections and sagittal and coronal reformats were viewed on an independent 3D workstation. IV contrast was administered without complication. Automated exposure control was utilized for the study. A dose lowering technique was utilized adhering to the principles of ALARA. CT DOSE: 941.69 mGy.cm FINDINGS: No pulmonary emboli are identified. There is no thoracic aortic dissection. Size of the heart is normal. There is no pericardial effusion. No consolidation is identified to suggest pneumonia. A few small calcified granulomas within the lungs are present. Central airways are patent. No acute fractures are identified within visualized portions of the bony thorax. There is mild splenomegaly, partially imaged on this exam. IMPRESSION: 1. No pulmonary emboli identified. 2. No consolidation to suggest pneumonia. 3. Mild splenomegaly. ACT 112: Negative or not required by law. Electronically signed by: Bashir Golden M.D. 05/16/2023 6:32 PM ECG Additional Comments: ECG sinus rhythm with PACs at a rate of 82, left anterior vascular block. Code Status & VTE Plan VTE Prophylaxis Plan VTE Prophylaxis will be ordered: Yes
[2023-05-17] MEDS: SODIUM CHLORIDE 0.9% 1000ML 1,000 ML IV SCH (06:17)
[2023-05-17 06:46] LABS: Hematocrit (blood only) 37.8 % (42.0-52.0); Hemoglobin 13.7 g/dl (14.0-18.0); Mean Corpuscular Hemoglobin 31.1 pg (25.0-34.0); Mean Corpuscular Hgb Conc 36.2 g/dL (32.0-36.0); Mean Corpuscular Volume 85.9 fL (80.0-100.0); Mean Platelet Volume 10.1 fL (9.4-12.4); Platelet Count 68 K/uL (130-400); RDW Coefficient of Variation 12.6 % (11.5-14.5); RDW Standard Deviation 39.8 fL (36.4-46.3); White Blood Count 2.54 K/ul (4.8-10.8)
[2023-05-17 06:57] LABS: BUN Creatinine Ratio 17.2 (10-20); Calcium 8.2 mg/dl (8.6-10.3); Creatinine Clr Calc Pharmacy 102.1 ml/min; Est GFR (African American) 105.2 ml/min; Est GFR (Non-African American) 90.8 ml/min; Magnesium 1.9 mg/dl (1.7-2.4); Potassium 3.7 mmol/L (3.5-5.1)
[2023-05-17 07:10] LABS: Basophils # (auto) 0.02 K/uL (0-0.2); Basophils % (auto) 0.8 %; Immature Granulocytes # (auto) 0.01 K/uL (0.01-0.20); Immature Granulocytes % (auto) 0.4 %; Lymphocytes # (auto) 0.62 K/uL (1.2-3.4); Lymphocytes % (auto) 24.4 %; Monocytes # (auto) 0.31 K/uL (0.11-0.59); Monocytes % (auto) 12.2 %; Neutrophils # (auto) 1.58 K/uL (1.40-6.50); Neutrophils % (auto) 62.2 %
--- NOTE | 2023-05-17 07:40 | Electrocardiogram Report ---
Test Reason : Blood Pressure : / mmHG Vent. Rate : 082 BPM Atrial Rate : 082 BPM P-R Int : 174 ms QRS Dur : 088 ms QT Int : 358 ms P-R-T Axes : 049 -61 046 degrees QTc Int : 418 ms Sinus rhythm with Premature atrial complexes Pulmonary disease pattern Left anterior fascicular block Abnormal ECG No previous ECGs available Confirmed by Lavon Day ([id number]) on 05/17/2023 7:40:25 AM Referred By: REFERRED SELF Confirmed By:Lavon Day
[2023-05-17] MEDS ORDERED: MULTIVITAMIN TAB PO SCH (09:00)
[2023-05-17] MEDS: DOXYCYCLINE HYCLATE 100 MG in DEXTROSE 5% 100 ML IV SCH (09:57)
--- NOTE | 2023-05-17 11:30 | Cardiology Consultation ---
Date of Consultation May 17, 2023 Assessment & Plan (1) Syncope: (2) UTI (urinary tract infection): (3) Sepsis: (4) Tick-borne disease: (5) Vasovagal syncope: Plan Patient admitted with 4 days of fevers, sepsis from either UTI or possible tick borne illness. During evaluation he had a syncopal episode likely vasovagal syncope. He has a long standing history of vasovagal syncope related to medical procedures. He did have transient bradycardia on telemetry but no symptoms during this time. Each bradycardic episode seemed to correlate with IV placement or lab draws. No concerning arrhythmias. Echo with preserved LVEF, mild LVH consistent with underlying HTN. Agree with broad spectrum antibiotics for UTI and possible tick related illness. Lyme negative. Other labs pending blood cultures pending Urine cultures pending Lisinopril/hctz on hold. Resume antihypertensive if needed. Continue to monitor on telemetry. Case discussed with Dr. Haines I spent a total of 60 minutes on the date of service in preparation, delivery, and documentation of the care provided to this patient, excluding any time spent in the performance of separately billed services. Dedra Rodriguez PA-C Department of Cardiology, [facility] This chart was completed in part utilizing Speech Voice Recognition Software. Grammatical errors, random word insertions, pronoun errors, and incomplete sentences are an occasional consequence of this system due to software limitations, ambient noise, and hardware issues. Any formal questions or concerns about the content, text, or information contained within the body of this dictation should be directly addressed to the provider for clarification. Supervising Physician Co-Signing Physician Notes Supervising Physician Attestation: I have personally performed a history and physical examination on the patient. I agree with the physician psychological assistant's findings and plan as documented with the following additions. Subjective: 55-year-old male who initially presented to the [facility] urgent care in [place] for evaluation of several days of a febrile illness. He states that the provider there performed a physical examination, and counseled him that he was in atrial fibrillation. Per patient's description he did not have an EKG performed there and was only connected to the phototypesetting equipment monitor after the arrival of the paramedics. The patient has a longstanding history of vasovagal syncope. After discussion with regards to potentially having a heart issue, the patient describes his usual vasovagal symptoms have returned. Per review of telemetry transient sinus bradycardia down to the 40s noted to just after 1700 yesterday and a 3-second pause was noted at 5:18 PM. This correlated with him having IV placement/blood drawn. Telemetry otherwise notable for sinus rhythm in the 60s with occasional PVCs. A 7 beat run of SVT was observed at 4:35 AM. Exam: Cardiovascular: Regular rhythm, no murmurs rubs or gallops, no edema Pulmonary: Lungs clear to auscultation bilaterally Data: EKG performed 05/16/2023 at 1542 revealed sinus rhythm at 82 bpm with occasional PACs, otherwise left anterior fascicular block present. Repeat EKG this morning at 6:24 AM and interpret independently: Sinus rhythm at 80 bpm left anterior fascicular block. As noted, telemetry reviewed, no evidence of atrial fibrillation, but did have PACs, PVCs, Echocardiogram revealed normal LVEF, normal LV wall motion, ejection fraction 60-65%, mild aortic root dilatation, 4 cm, mild concentric left ventricular hypertrophy consistent with patient's history of mild hypertension. CT angiogram of the chest negative for pulmonary embolism Blood cultures negative thus far Assessment and Plan: Vasovagal syncope Febrile illness with noted leukopenia, thrombocytopenia, risk for tick bite -Question if patient was noted to have an irregular rhythm yesterday at urgent care in the setting of PACs, PVCs. No evidence of atrial fibrillation noted on telemetry. -Agree with antibiotics. -Continue observation on telemetry while inpatient. DVT prophylaxis: Patient will likely not tolerate subcutaneous heparin or subcutaneous Lovenox. Consider SCDs depending upon his life then stay, or just ambulate in the hallway as tolerated. I spent a total of 20 minutes on the date of service in preparation, delivery, and documentation of the care provided to this patient, excluding any time spent in the performance of separately billed services. Fransisco Haines, DO History of Present Illness Reason for Consultation: Syncope Requesting Physician: Dr. Bain Attending Physician: Dr. Haines History of Present Illness Patient is a 58 year old male brought to [facility] via EMS after having a syncopal episode at Urgent Care yesterday. Patient reports fevers and chills, malaise for 4 days. He went to urgent care yesterday and they mentioned he may be in afib. He does not recall having an EKG. After being told this, he reports getting hot/flushed and had a syncopal event. No loss of bowel or bladder incontinence. He reports a long history of vasovagal syncope in the setting of medical issues/illness and diagnoses, and this was not a new event. He has worn outpatient monitors in the past for similar episodes without findings of arrhythmias, per patient and . He has been told in the past and when he was younger, that he has an "athletic heart" that is "mildly enlarged " but was told this was not concerning. Upon arrival to ER, he was found to have abnormal labs consistent with possible sepsis. +Urinalysis. Urine Culture pending. Blood culture pending. he also reports fevers x4 days with prior tick bite approx 3 weeks ago. He believes he removed the tick within a few hours of implantation. No rashes. Since admission he denies recurrence syncope/near syncope. He had several episodes of bradycardia and one pause lasting 2.9 seconds shortly after admission yesterday that correlated with blood draw. No symptoms during this time. he is active on a regular basis and denies chest pain, SOB, palpitations or dizziness. Other history includes hypertension for which he takes lisinopril/hctz. At time of consult, patient resting in bed comfortably. Denies recurrent syncope, although he admits to getting hot/flushing sensations when he is having his IV hooked up or labs taken. No recurrent fevers. Feeling better with antibiotics. No other symptoms currently. Allergies Allergy/AdvReac Type Severity Reaction Status Date / Time MOSQUITO BITES Allergy Intermediate EXTREME Uncoded 05/16/23 18:46 SWELLING AT SITES, ENDED WITH CELLULITIS. 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 Beliefs That Will Affect Care: None Current Living Situation: Spouse Other Information That Helps Us Care for You: No Feels Safe at Home: Yes Safety Concerns: Feels Safe At This Time Assistive Devices: None Review of Systems Review of Systems: All systems reviewed & are unremarkable except as noted in HPI & below Physical Exam Constitutional: WD/WN, vitals as above well nourished; no acute distress Neck: trachea midline, no thyromegaly Respiratory: normal respiratory effort, lungs clear to auscultation Cardiovascular: Rate/Rhythm: regular rate and regular rhythm Heart Sounds: normal S1 and normal S2; no murmur Vessels: no JVD Extremities: no edema Gastrointestinal (Abdomen): normal bowel sounds, soft, nontender, no hepatosplenomegaly Skin: no rashes, warm and dry Neurologic: PERRL, EOMI, accommodation nl, no face palsy, no dysarthria Results & Data Vital Signs (Past 12 Hours) Vital Signs Temp Pulse Pulse Resp BP Pulse Ox O2 Del Method 05/17/23 10:46 37.0 C 60 18 142/82 H 98 Room Air 05/17/23 08:00 81 05/17/23 07:38 37.3 C 18 95 Room Air 05/17/23 03:36 37.6 C H 78 18 116/75 98 Room Air 05/16/23 23:46 131/84 05/16/23 23:43 129/81 05/16/23 23:42 36.5 C 73 16 126/76 99 Room Air Laboratory Results Cardiac Enzymes 05/16/23 05/17/23 Range/Units 15:50 06:26 AST 36 (13-39) U/L Troponin I High Sens 7.1 8.3 (0-20) pg/ml Coagulation 05/16/23 Range/Units 15:50 PT 11.7 (9.0-12.0) Seconds APTT 28.4 (21.0-31.0) Seconds CBC 05/16/23 05/17/23 Range/Units 15:50 06:26 WBC 3.18 L 2.54 L (4.8-10.8) K/ul RBC 4.98 4.40 L (4.70-6.10) M/uL Hgb 15.4 13.7 L (14.0-18.0) g/dl Hct 42.4 37.8 L (42.0-52.0) % Plt Count 80 L 68 L (130-400) K/uL Neut # (Auto) 2.58 1.58 (1.40-6.50) K/uL Lymph # (Auto) 0.31 L 0.62 L (1.2-3.4) K/uL [place] # (Auto) 0.25 0.31 (0.11-0.59) K/uL Eos # (Auto) 0.00 0.00 (0-0.50) K/uL Baso # (Auto) 0.03 0.02 (0-0.2) K/uL Comprehensive Metabolic Panel 05/16/23 05/17/23 Range/Units 15:50 06:26 Sodium 131 L 134 L (136-145) mmol/L Potassium 3.6 3.7 (3.5-5.1) mmol/L Chloride 97 L 101 (98-107) mmol/L Carbon Dioxide 23 27 (21-32) mmol/L BUN 17 16 (6-23) mg/dl Creatinine 1.09 0.93 (0.6-1.4) mg/dl Glucose 166 H 105 H (70-99(Fasting)) mg/dl Calcium 9.0 8.2 L (8.6-10.3) mg/dl AST 36 (13-39) U/L ALT 35 (7-52) U/L Alkaline Phosphatase 58 (34-104) U/L Total Protein 6.9 (6.0-8.3) gm/dl Albumin 4.0 (3.4-5.0) gm/dl Intake and Output 05/16/23 05/17/23 05/17/23 22:59 06:59 14:59 Intake Total 2470 / 4123.75 1653.75 / 4123.75 245.833 / 245.833 Balance 2470 / 4123.75 1653.75 / 4123.75 245.833 / 245.833 Intake: IV 2070 / 3173.75 1103.75 / 3173.75 245.833 / 245.833 Doxycycline Hyclate 100 mg In 110 / 110 Dextrose 5% 100 ml @ 50 mls/hr IV Q12H MONSE Rx#:[id number] Sodium Chloride 0.9% 1000ML 1, 1999 / 2993.75 993.75 / 2993.75 245.833 / 245.833 000 ml @ 125 mls/hr IV .Q8H MONSE Rx#:[id number] cefTRIAXone SODIUM 2,000 mg In 70 / 70 70 ml @ 140 mls/hr IV NOW STA Rx#:[id number] Oral 400 / 950 550 / 950 Other: # Unmeasured Voids 1 1 Weight 92.986 kg 92.9 kg Weight Measurement Method [facility] Findings Telemetry reviewed: NSR with occ PAC's and PVC's. He had one 2.9 second pause occurring yesterday on admission around 17:18. He also had one episode of transient bradycardia this morning lasting several minutes. No symptoms. EKG on admission: Sinus rhythm with PAC Left anterior fascicular block No prior EKG for comparison Repeat EKG dated 05/17/2023: Normal sinus rhythm Left anterior fascicular block No significant change from previous. Echocardiogram report reviewed Mild concentric LVH. No regional wall motion abnormalities. Normal LVEF at 60-65% Mild aortic sclerosis, no stenosis. Aortic root is mildly dilated at 4.0 cm Grade I diastolic dysfunction Chest X-Ray 05/16/23 16:26 XR chest 1V portable HISTORY: 58 years-old Male syncope COMPARISON: None TECHNIQUE: AP view of the chest FINDINGS: Cardiomediastinal and hilar silhouettes are within normal limits. No pneumothorax, pleural effusion, airspace consolidation or pulmonary edema. Bones appear grossly intact. Spondylotic spurring of the spine. IMPRESSION: No acute process. ACT 112: Negative or not required by law. The above report was generated using voice recognition software. It may contain grammatical, syntax or spelling errors. Electronically signed by: Burke Colon M.D. 05/16/2023 4:35 PM Chest CTA 05/16/23 18:06 CT ANGIOGRAPHY OF THE CHEST, PULMONARY EMBOLUS PROTOCOL CLINICAL HISTORY: Fever, syncope, positive Dimer COMPARISON STUDY: Chest radiograph performed earlier today. TECHNIQUE: Following IV administration of 117 mL of Optiray, helical axial images of the chest were obtained utilizing the pulmonary embolus protocol. Maximal intensity projections and sagittal and coronal reformats were viewed on an independent 3D workstation. IV contrast was administered without complication. Automated exposure control was utilized for the study. A dose lowering technique was utilized adhering to the principles of ALARA. CT DOSE: 941.69 mGy.cm FINDINGS: No pulmonary emboli are identified. There is no thoracic aortic dissection. Size of the heart is normal. There is no pericardial effusion. No consolidation is identified to suggest pneumonia. A few small calcified granulomas within the lungs are present. Central airways are patent. No acute fractures are identified within visualized portions of the bony thorax. There is mild splenomegaly, partially imaged on this exam. IMPRESSION: 1. No pulmonary emboli identified. 2. No consolidation to suggest pneumonia. 3. Mild splenomegaly. ACT 112: Negative or not required by law. Electronically signed by: Bashir Golden M.D. 05/16/2023 6:32 PM Medications Administered Current Inpatient Medications Acetaminophen (Acetaminophen 325 Mg Tab) 650 mg PO Q4H PRN PRN Reason: Pain or Fever Stop: 06/15/23 21:57 Ceftriaxone Sodium 2,000 mg/ (Dextrose) 70 mls @ 100 mls/hr IV Q24H MONSE; Protocol Stop: 05/27/23 16:59 Doxycycline Hyclate 100 mg/ (Dextrose) 110 mls @ 50 mls/hr IV Q12H MONSE Stop: 05/30/23 21:59 Last Admin: 05/17/23 09:57 Dose: 50 mls/hr Lorazepam (Lorazepam 1 Mg Tab) 1 mg PO DAILY PRN PRN Reason: ANXIETY--BLOOD DRAWS Stop: 06/15/23 21:57 Multivitamins (Multivitamin Tab) 1 tab PO DAILY MONSE Stop: 06/16/23 08:59 Last Admin: 05/17/23 08:14 Dose: 1 tab Nitroglycerin (Nitroglycerin Sl 0.4 Mg/Tab Tab) 0.4 mg SL Q5M PRN PRN Reason: Chest Pain Stop: 06/15/23 21:57
--- NOTE | 2023-05-17 12:43 | Electrocardiogram Report ---
Test Reason : Blood Pressure : / mmHG Vent. Rate : 080 BPM Atrial Rate : 080 BPM P-R Int : 184 ms QRS Dur : 090 ms QT Int : 386 ms P-R-T Axes : 050 -52 034 degrees QTc Int : 445 ms Normal sinus rhythm Left anterior fascicular block Abnormal ECG When compared with ECG of 16-MAY-2023 15:42, Premature atrial complexes are no longer Present Confirmed by Lavon Day ([id number]) on 05/17/2023 12:43:33 PM Referred By: REFERRED SELF Confirmed By:Lavon Day
--- NOTE | 2023-05-17 13:02 | Hospitalist Progress Note ---
Date of Service May 17, 2023 Assessment & Plan (1) Sepsis: (2) Syncope: (3) UTI (urinary tract infection): (4) Tick-borne disease: Plan 58-year-old male with history of hypertension and history of syncopal episodes presents with high fevers and syncopal episodes and found to have sepsis most likely secondary to UTI and tickborne illness. Sepsis, on POA High fever, leukopenia elevated lactic acid 2.1 on presentation Urinalysis positive for infection. Patient lives in [facility] area and recently had a tick bite 3 weeks ago though he thinks it was only less than 2 hours on his body when he took it off. continue the Rocephin and doxycycline and IV fluids monitor the hemodynamics follow the cultures Syncope likely due to vasovagal syncope. He passed a couple of times in the urgent care and [facility] Patient says he has history of syncopes in the past several times since his 20s mostly associated with any medical condition Echocardiogram done; EF of 60 to 65%; no regional wall motion abnormalities Continue telemetry monitoring. Discussion done with cardiology. UTI Urinalysis history of infection. On ceftriaxone. Follow-up on urine culture and blood culture. Possible tickborne illness Leukopenia Thrombocytopenia Patient is noted area and had tick bite 3 weeks ago Possible anaplasmosis vs baseosis as patient has leukopenia and thrombo cytopenia and elevated total bilirubin We will follow the tickborne illness studies Currently on Rocephin and Doxy Peripheral blood smear. Hyponatremia Sodium of 131 Improved to 134 today Elevated D-dimer CTA chest no PE Most likely from sepsis Hypertension On lisinopril hydrochlorothiazide at home We will hold home blood pressure meds for now and monitor DVT prophylaxis SCDs as patient has thrombocytopenia Discussed with at bedside. Answered question and queries. Time spent evaluating patient, direct bedside care, chart review, placing orders, interpretation of diagnostic studies, discussion with consultants, patient, and family members, as well as other required patient management activities is 60 minutes. Please note the above document was generated using voice recognition software. It may contain grammatical, syntax or spelling errors. Any formal questions or concerns about the content, text or information contained within the body of this dictation should be directly addressed to the provider for clarification Admission and Anticipated Discharge Date Admission Date: May 16, 2023 Subjective Patient seen and examined at bedside. He reports that he is feeling much better since admission. Denies any dizziness. Afebrile today a.m. Review of Systems Review of Systems: All systems reviewed & are unremarkable except as noted in Subjective Physical Exam Physical Exam: Constitutional: WD/WN, vitals as above, NAD, sitting up in bed, pleasant, conversing easily Respiratory: normal respiratory effort, lungs clear to auscultation, no wheeze, rales, rhonchi. Normal insp/exp effort, no accessory muscle use Cardiovascular: RRR, no murmur, no edema Vessels: no JVD or carotid bruit Chest: normal inspection of chest Abdomen: normal bowel sounds, soft, nontender, no hepatosplenomegaly Musculoskeletal: no cyanosis or clubbing, extremities motor strength 5/5 Skin: no rashes, warm and dry normal turgor Neurologic: PERRL, EOMI, accommodation nl, no face palsy, no dysarthria CN's II- XI intact bilaterally and moves all extremities Psychiatric: A+Ox3, euthymic affect Results & Data Results & Data Vital Signs (Past 12 Hours) Vital Signs Temp Pulse Pulse Resp BP Pulse Ox O2 Del Method 05/17/23 10:46 37.0 C 60 18 142/82 H 98 Room Air 05/17/23 08:00 81 05/17/23 07:38 37.3 C 18 95 Room Air 05/17/23 03:36 37.6 C H 78 18 116/75 98 Room Air Laboratory Results Laboratory Results WBC 2.54 K/ul (4.8-10.8) L 05/17/23 06:26 RBC 4.40 M/uL (4.70-6.10) L 05/17/23 06:26 Hgb 13.7 g/dl (14.0-18.0) L 05/17/23 06:26 Hct 37.8 % (42.0-52.0) L 05/17/23 06:26 MCV 85.9 fL (80.0-100.0) 05/17/23 06:26 MCH 31.1 pg (25.0-34.0) 05/17/23 06:26 MCHC 36.2 g/dL (32.0-36.0) H 05/17/23 06:26 RDW Std Deviation 39.8 fL (36.4-46.3) 05/17/23 06:26 RDW Coeff of Marika 12.6 % (11.5-14.5) 05/17/23 06: Plt Count 68 K/uL (130-400) L 05/17/23 06:26 MPV 10.1 fL (9.4-12.4) 05/17/23 06:26 Immature Gran % (Auto) 0.4 % 05/17/23 06: Neut % (Auto) 62.2 % 05/17/23 06:26 Lymph % (Auto) 24.4 % 05/17/23 06:26 Milam % (Auto) 12.2 % 05/17/23 06: Eos % (Auto) 0.0 % 05/17/23 06: Baso % (Auto) 0.8 % 05/17/23 06: Neut # (Auto) 1.58 K/uL (1.40-6.50) 05/17/23 06:26 Lymph # (Auto) 0.62 K/uL (1.2-3.4) L 05/17/23 06:26 Milam # (Auto) 0.31 K/uL (0.11-0.59) 05/17/23 06:26 Eos # (Auto) 0.00 K/uL (0-0.50) 05/17/23 06:26 Baso # (Auto) 0.02 K/uL (0-0.2) 05/17/23 06: Immature Gran # (Auto) 0.01 K/uL (0.01-0.20) 05/17/23 06:26 Platelet Estimate Decreased (Normal) L 05/16/23 15:50 PT 11.7 Seconds (9.0-12.0) 05/16/23 15:50 INR 1.1 (0.9-1.1) 05/16/23 15:50 APTT 28.4 Seconds (21.0-31.0) 05/16/23 15:50 PTT Ratio 1.0 05/16/23 15:50 D-Dimer 4340 ug/L FEU (0-500) H* 05/16/23 15:50 Sodium 134 mmol/L (136-145) L 05/17/23 06:26 Potassium 3.7 mmol/L (3.5-5.1) 05/17/23 06:26 Chloride 101 mmol/L (98-107) 05/17/23 06:26 Carbon Dioxide 27 mmol/L (21-32) 05/17/23 06:26 Anion Gap 6 (3-11) 05/17/23 06:26 BUN 16 mg/dl (6-23) 05/17/23 06:26 Creatinine 0.93 mg/dl (0.6-1.4) 05/17/23 06:26 Est Cr Clr Drug Dosing 102.1 ml/min 05/17/23 06:26 Est GFR ( Amer) 105.2 ml/min 05/17/23 06:26 Est GFR (Non-Af Amer) 90.8 ml/min 05/17/23 06:26 BUN/Creatinine Ratio 17.2 (10-20) 05/17/23 06:26 Glucose 105 mg/dl (70-99(Fasting)) H 05/17/23 06:26 Lactate 1.3 mmol/L (0.4-2.0) 05/16/23 19:25 Calcium 8.2 mg/dl (8.6-10.3) L 05/17/23 06:26 Magnesium 1.9 mg/dl (1.7-2.4) 05/17/23 06:26 Total Bilirubin 1.5 mg/dl (0.2-1.0) H 05/16/23 15:50 AST 36 U/L (13-39) 05/16/23 15:50 ALT 35 U/L (7-52) 05/16/23 15:50 Alkaline Phosphatase 58 U/L (34-104) 05/16/23 15:50 Total Creatine Kinase 69 U/L (30-223) 05/16/23 15:50 Troponin I High Sens 7.6 pg/ml (0-20) 05/17/23 11:02 C-Reactive Protein 15.23 mg/dl (0-0.5) H 05/16/23 15:50 Total Protein 6.9 gm/dl (6.0-8.3) 05/16/23 15:50 Albumin 4.0 gm/dl (3.4-5.0) 05/16/23 15:50 Globulin 2.9 gm/dl (2.5-4.0) 05/16/23 15:50 Albumin/Globulin Ratio 1.4 (0.9-2) 05/16/23 15:50 Lipase 19 U/L (11-82) 05/16/23 15:50 Procalcitonin 0.47 ng/ml (0-0.5) 05/16/23 15:50 TSH 0.587 uIu/ml (0.300-4.500) 05/16/23 15:50 Urine Color Dark Yellow 05/16/23 16:47 Urine Appearance Cloudy (Clear) A 05/16/23 16:47 Urine pH 6.5 (4.5-7.5) 05/16/23 16:47 Ur Specific [place] 1.023 (1.000-1.030) 05/16/23 16:47 Urine Protein 2+ (Negative) H 05/16/23 16:47 Urine Glucose (UA) Negative (Negative) 05/16/23 16:47 Urine Ketones 2+ (Negative) H 05/16/23 16:47 Urine Blood Trace (Negative) H 05/16/23 16:47 Urine Nitrite Positive (Negative) A 05/16/23 16:47 Urine Bilirubin Negative (Negative) 05/16/23 16:47 Urine Urobilinogen Negative (Negative) 05/16/23 16:47 Ur Leukocyte Esterase Trace (Negative) H 05/16/23 16:47 Urine WBC (Auto) 1-5 /hpf (0-5) 05/16/23 16:47 Urine RBC (Auto) 5-10 /hpf (0-4) H 05/16/23 16:47 U Hyaline Cast (Auto) 1-5 /lpf (0-5) 05/16/23 16:47 U Epithel Cells (Auto) 10-20 /lpf (0-5) H 05/16/23 16:47 Urine Bacteria (Auto) 1+ (Negative) H 05/16/23 16:47 Adenovirus (PCR) Not Detected (NotDetected) 05/16/23 17:10 Anaplasma Smear See Comment 05/16/23 15:50 Babesia Smear See Comment 05/16/23 15:50 B. pertussis DNA (PCR) Not Detected (NotDetected) 05/16/23 17:10 B.parapertussis DNA PCR Not Detected (NotDetected) 05/16/23 17:10 Lyme Disease IgG Ab Negative (Negative) 05/16/23 15:50 Lyme Disease IgM Ab Negative (Negative) 05/16/23 15:50 C. pneumoniae DNA (PCR) Not Detected (NotDetected) 05/16/23 17:10 Coronavirus OC43 (PCR) Not Detected (NotDetected) 05/16/23 17:10 Coronavirus HKU1 (PCR) Not Detected (NotDetected) 05/16/23 17:10 Coronavirus 229E (PCR) Not Detected (NotDetected) 05/16/23 17:10 SARS-CoV-2 (PCR) Not Detected (NotDetected) 05/16/23 17:10 Coronavirus NL63 (PCR) Not Detected (NotDetected) 05/16/23 17:10 Monoscreen Negative (Negative) 05/16/23 18:07 Human Metapneumovir PCR Not Detected (NotDetected) 05/16/23 17:10 Influenza Type A (PCR) Not Detected (NotDetected) 05/16/23 17:10 Influenza Type B (PCR) Not Detected (NotDetected) 05/16/23 17:10 M. pneumoniae (PCR) Not Detected (NotDetected) 05/16/23 17:10 Parainfluenza 1 (PCR) Not Detected (NotDetected) 05/16/23 17:10 Parainfluenza 2 (PCR) Not Detected (NotDetected) 05/16/23 17:10 Parainfluenza 3 (PCR) Not Detected (NotDetected) 05/16/23 17:10 Parainfluenza 4 (PCR) Not Detected (NotDetected) 05/16/23 17:10 RSV (PCR) Not Detected (NotDetected) 05/16/23 17:10 Entero/Rhino (PCR) Not Detected (NotDetected) 05/16/23 17:10 Impressions Chest X-Ray 05/16/23 16:26 XR chest 1V portable HISTORY: 58 years-old Male syncope COMPARISON: None TECHNIQUE: AP view of the chest FINDINGS: Cardiomediastinal and hilar silhouettes are within normal limits. No pneumothorax, pleural effusion, airspace consolidation or pulmonary edema. Bones appear grossly intact. Spondylotic spurring of the spine. IMPRESSION: No acute process. ACT 112: Negative or not required by law. The above report was generated using voice recognition software. It may contain grammatical, syntax or spelling errors. Electronically signed by: Burke Colon M.D. 05/16/2023 4:35 PM Chest CTA 05/16/23 18:06 CT ANGIOGRAPHY OF THE CHEST, PULMONARY EMBOLUS PROTOCOL CLINICAL HISTORY: Fever, syncope, positive Dimer COMPARISON STUDY: Chest radiograph performed earlier today. TECHNIQUE: Following IV administration of 117 mL of Optiray, helical axial images of the chest were obtained utilizing the pulmonary embolus protocol. Maximal intensity projections and sagittal and coronal reformats were viewed on an independent 3D workstation. IV contrast was administered without complication. Automated exposure control was utilized for the study. A dose lowering technique was utilized adhering to the principles of ALARA. CT DOSE: 941.69 mGy.cm FINDINGS: No pulmonary emboli are identified. There is no thoracic aortic dissection. Size of the heart is normal. There is no pericardial effusion. No consolidation is identified to suggest pneumonia. A few small calcified granulomas within the lungs are present. Central airways are patent. No acute fractures are identified within visualized portions of the bony thorax. There is mild splenomegaly, partially imaged on this exam. IMPRESSION: 1. No pulmonary emboli identified. 2. No consolidation to suggest pneumonia. 3. Mild splenomegaly. ACT 112: Negative or not required by law. Electronically signed by: Bashir Golden M.D. 05/16/2023 6:32 PM
[2023-05-17] MEDS ORDERED: cefTRIAXone SODIUM 2,000 MG in DEXTROSE 5% 50 ML IV SCH (17:00)
[2023-05-17] MEDS ORDERED: DOXYCYCLINE HYCLATE 100 MG CAP PO STA (20:10)
[2023-05-17] MEDS ORDERED: ALPRAZolam 0.5 MG TABLET PO STA (20:10)
--- NOTE | 2023-05-18 17:25 | Discharge Summary ---
Date of Service May 18, 2023 Admission HPI Per Admitting Provider 58-year-old male with past medical history significant for hypertension history of syncopal episodes in the past presents with high fevers and syncopal episode in the urgent care. [place] [address] [place] Last Sunday he got some logs later in the night he felt weak started developing fevers. The fevers did not subside and Sunday they were 104 degrees. He took some Tylenol. As they are not getting better and feeling weak and poor appetite he went to urgent care today. In the urgent care he was told that he has to go to ER and that he has A-fib when he suddenly had somewhat panic attack because he does not like hospitals and he passed out for less than a minute as per the patient. With EMS came he passed out 1 more time as per patient. He says he drank a lot of water in anticipation of urine test before going to the urgent care. And says he micturated once while he passed out. Patient states syncopal episodes is not new to him. He is having them since his 20s. And all of them happened when he is in the medical situation. He does not like needles and hospitals. He stated he had a work-up with Holter sleep study with the cardiology in the past. He thinks he he has vasovagal syncope. 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 Patient states when he is not raining he is mostly in the sing[place]. When he is in the singh he wears clothes treated with permethrin. But 3 weeks ago he saw a tick on the right side of his trunk and took it out and he thinks its not more than couple of hours there. 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 He was treated with doxycycline for 10 days and that cleared infection very fast. In the ER after fluids and antibiotics if a lot better. During the syncopal episode he sweat a lot and was feeling dizzy. Even in the ER while his blood work was done he felt panicky attack and sweat a lot. He says he walked to this CAT scan and he did not feel dizziness. Currently denies any headache or neck pain or chest pain or abdominal pain or back pain. He had back pain earlier but that resolved with the Tylenol. Denies any cough. No earache or runny nose or sore throat. Appetite is down. Today had 1 episode of diarrhea. Normal bladder movements. Urine looked dark. Past medical history as mentioned above Past surgical history none as per patient Family history both mother and dad has diabetes, mother had diabetic retinopathy, maternal grandfather had cancer. Social history never smoked Alcohol occasional. Admission Exam Per Admitting Provider General- Not in distress Head- atraumatic Eyes- PERRL ENT- oropharynx clear Neck- supple, no JVD, Lungs- clear to auscultation and percussion Heart- regular rate and rhythm; no murmur, no gallop, Abdomen- normal bowel sounds, soft, nontender, nodistension Extremities- no pretibial edema, no erythema seen Neuro- alert, oriented x 3; PERRL, EOMI; no facial palsy; no dysarthria; non foacl. Skin- warm & dry Principal Diagnosis Sepsis, on POA Syncope likely due to vasovagal syncope. Discharge Exam Constitutional: WD/WN, vitals as above, NAD, sitting up in bed, pleasant, conversing easily Respiratory: normal respiratory effort, lungs clear to auscultation, no wheeze, rales, rhonchi. Normal insp/exp effort, no accessory muscle use Cardiovascular: RRR, no murmur, no edema Vessels: no JVD or carotid bruit Chest: normal inspection of chest Abdomen: normal bowel sounds, soft, nontender, no hepatosplenomegaly Musculoskeletal: no cyanosis or clubbing, extremities motor strength 5/5 Skin: no rashes, warm and dry normal turgor Neurologic: PERRL, EOMI, accommodation nl, no face palsy, no dysarthria CN's II- XI intact bilaterally and moves all extremities Psychiatric: A+Ox3, euthymic affect Discharge Data Allergies Allergy/AdvReac Type Severity Reaction Status Date / Time MOSQUITO BITES Allergy Intermediate EXTREME Uncoded 05/16/23 18:46 SWELLING AT SITES, ENDED WITH CELLULITIS. Consultations 05/16/23 19:13 ED Decision to Admit Stat 05/17/23 08:00 Consult Cardiology Routine Ordered Studies 05/16/23 18:06 CT angio chest PE protocol Stat Hospital Course (1) Sepsis: (2) Syncope: (3) UTI (urinary tract infection): (4) Tick-borne disease: Plan 58-year-old male with history of hypertension and history of syncopal episodes presents with high fevers and syncopal episodes and found to have sepsis most likely secondary to UTI and tickborne illness. Sepsis, on POA Possible tickborne illness Leukopenia Thrombocytopenia High fever, leukopenia elevated lactic acid 2.1 on presentation Urinalysis positive for infection. [place] and recently had a tick bite 3 weeks ago though he thinks it was only less than 2 hours on his body when he took it off. Labs significant for leukopenia and thrombocytopenia. Possible anaplasmosis vs baseosis as patient has leukopenia and thrombocytopenia and elevated total bilirubin Patient had elevated D-dimer for which CTA chest was done which was negative for PE. During the hospitalization, patient was treated with IV ceftriaxone and doxycycline. Blood cultures were negative for 24 hours. Patient was afebrile, vitally stable and saturating well in room air at discharge. Patient was recommended to stay in the hospital to follow-up on leukopenia and thrombocytopenia; as well as follow-up on blood culture results. Patient insisted on getting discharged and reassured that he will follow-up with his primary care doctor. He was discharged on 5 days of cefdinir for for possible UTI and 10 days of doxycycline for possible tickborne illness. Patient to follow-up with his PCP and obtain CBC next week Syncope likely due to vasovagal syncope. He passed a couple of times in the urgent care and was told just to go to hospital Patient says he has history of syncopes in the past several times since his 20s mostly associated with any medical condition Echocardiogram done; EF of 60 to 65%; no regional wall motion abnormalities Cardiac consultation was done; the syncope were thought to be vasovagal in nature. Please note the above document was generated using voice recognition software. It may contain grammatical, syntax or spelling errors. Any formal questions or concerns about the content, text or information contained within the body of this dictation should be directly addressed to the provider for clarification Total Time Total Time Spent Total Time Spent (In Minutes): 45 Total Time Includes: Examination of the Patient, Discharge Planning, Medication Reconciliation, Communication With Other Providers and Other Discharge Plan Discharge Items Patient Disposition: Home - Self-Care Reason For Visit: SYNCOPE Discharge Diagnosis: Tick borne illness Vasovagal syncope Activity: Resume your previous activity Non-emergency contact: Primary Care Provider Call non-emergency contact if: you have any medication questions Follow-up/Referrals: Joseph Mckeon [Primary Care Provider] - Diet: Regular Addtl Attending Provider Instructions: You were admitted here with fever. The likely source is due to tick borne illness. You are prescribed two antibiotics: 1) Cefdinir 300mg bid for 5 days 2) Doxycycline 100mg twice daily for 10 days You will need to follow up with PCP next week and have CBC done to check on your WBC count, platelets count and results of your remaining blood work. Pending Studies at Discharge: Yes Studies:: Tick borne illness panel Stand-Alone Forms: My [facility] [employer], Smoking Cessation Medications and DC Order Prescriptions: New doxycycline hyclate 100 mg capsule 100 mg PO BID 10 Days Qty: 20 0RF cefdinir 300 mg capsule 300 mg PO BID 5 Days Qty: 10 0RF Continued multivitamin Tablet 1 tab PO DAILY celecoxib 200 mg capsule 200 mg PO QPM PRN (Reason: Pain) lorazepam 1 mg tablet 1 mg PO DAILY PRN (Reason: ANXIETY--BLOOD DRAWS) lisinopril-hydrochlorothiazide 20-12.5 mg tablet 1 tab PO DAILY Discharge Orders: Discharge Order (Routine); Ordered 05/17/23 Ordered By: Tito Carlos Admission Data Admit Date/Time: 05/16/23 20:55 Attending Provider: Tito Carlos Admit Provider: Lexa Bain Primary Care Provider: Joseph Mckeon Other Providers: Fransisco Haines ; Lexa Bain Other Interventions: Discharge Summary Assessment (RN) Last Done: 05/17/23 20:06
[2023-05-20 01:57] LABS: Babesia microti DNA Not Detected (Not Detected)
[2023-05-22 11:09] LABS: Ehrlichia chaff DNA Bld Negative (Negative)
[2023-05-22 17:22] LABS: Q Fever IgG, Phase I NEGATIVE; Q Fever Phase I IgM Antibody NEGATIVE; Q Fever Phase II IgG Antibody NEGATIVE; Q Fever Phase II IgM Antibody NEGATIVE; R. typhi IgG Ab NOT DETECTED; R. typhi IgM Ab NOT DETECTED; RMSF IgG Ab NOT DETECTED; RMSF IgM Ab NOT DETECTED
== END 2023-05-17 21:21 | disposition home or self-care (01) | DRG 872 ==
LOC: ED 15:30 → 2E 20:55